=== PATIENT | male | born 1995 | race Caucasian/White ===

== ENCOUNTER 2020-06-18 21:51 | Emergency (ER) | payer OTHER ==
[~2020-06-18] VITALS: Ht 177.8 cm; Wt 80.0 kg
[2020-06-18] MEDS ORDERED: LORAZEPAM 1MG TABLET PO ONE (22:45)
[2020-06-18 23:38] LABS: CHLORIDE 105 mEq/L (98-107)
[2020-06-18 23:41] LABS: ETHANOL BLOOD 85 mg/dL
[2020-06-18 23:45] LABS: BASOPHILS % 0.5 % (0.0-2.0); EOSINOPHILS % 0.5 % (0.0-5.0); HEMATOCRIT. 45.4 % (42.0-52.0); HEMOGLOBIN. 16.1 g/dL (14.0-18.0); LYMPHOCYTES % 19.7 % (20.0-50.0); MEAN CORPUSCULAR HEMOGLOBIN 33.6 pg (28.0-32.0); MEAN CORPUSCULAR VOLUME 94.6 fL (80.0-94.0); MEAN PLATELET VOLUME 6.8 fl (7.4-10.4); MONOCYTES % 4.7 % (2.0-8.0); NEUTROPHILS % 74.6 % (40.0-76.0); PLATELET 432 x1000/uL (130-400); RED CELL DISTRIBUTION WIDTH 15.6 % (11.6-14.6)
[2020-06-19 01:19] VITALS: BP 108/71
== END 2020-06-19 01:22 | disposition home or self-care (01) ==
LOC: ER 21:51
DX: R06.4 Hyperventilation (principal); F41.9 Anxiety disorder, unspecified; R00.2 Palpitations; F90.9 Attention-deficit hyperactivity disorder, unspecified type; F31.9 Bipolar disorder, unspecified; J45.909 Unspecified asthma, uncomplicated
CPT/HCPCS: 36415; 71045; 80053; 80320; 84484; 85025; 99284; G0480